=== PATIENT | male | born 1960 | race Caucasian/White ===

== ENCOUNTER 2024-07-30 13:34 | Outpatient (CLI) | payer OTHER | END 2024-07-30 23:59 | disposition home or self-care (01) | LOC: MRI 13:34 | PROVIDERS: ATTEND Student in an Organized Health Care Education/Training Program | DX: M17.12 Unilateral primary osteoarthritis, left knee (principal); M48.02 Spinal stenosis, cervical region; M47.812 Spondylosis without myelopathy or radiculopathy, cervical region; M25.562 Pain in left knee; M54.2 Cervicalgia; M25.762 Osteophyte, left knee | CPT/HCPCS: 72141; 73721 ==

== ENCOUNTER 2024-10-20 12:51 | Outpatient (CLI) | payer OTHER | END 2024-10-20 23:59 | disposition home or self-care (01) | LOC: RAD 12:51 | PROVIDERS: ATTEND Student in an Organized Health Care Education/Training Program | DX: G96.00 Cerebrospinal fluid leak, unspecified (principal); S06.9X9S Unspecified intracranial injury with loss of consciousness of unspecified duration, sequela; J34.1 Cyst and mucocele of nose and nasal sinus; X58.XXXS Exposure to other specified factors, sequela | CPT/HCPCS: 70450; 70486 ==